=== PATIENT | male | born 1995 | race Caucasian/White ===

== ENCOUNTER → 2017-01-05 | Outpatient (CLI) | payer OTHER ==
[2017-01-05 11:33] VITALS: BP 147/85
== END ==
LOC: MHUC 10:45
PROVIDERS: ATTEND Physician Assistant
DX: L03.211 Cellulitis of face (principal); H02.845 Edema of left lower eyelid; H02.844 Edema of left upper eyelid; H66.002 Acute suppurative otitis media without spontaneous rupture of ear drum, left ear
CPT/HCPCS: 99213